=== PATIENT | female | born 1975 | race Hispanic/Latino ===

== ENCOUNTER → 2017-09-17 | Day surgery (SDC) | payer BC ==
[~2017-09-17] MED LIST: CEFAZOLIN SOD 1 GM/NS 50ML 0 ML IV ONE; DEXAMETHASONE SOD PHOS INJ 4 MG/ML VIAL ONE; FENTANYL CITRATE/PF 100MCG/2 ML INJ ONE; LIDOCAINE HCL 2% LOCAL INJ 5 ML SDV VIAL INJ ONE; MIDAZOLAM HCL 2 MG/2 ML VIAL ONE; ONDANSETRON HCL INJ 2 MG/ML VIAL ONE; PROPOFOL IV EMULSION 10 MG/ML 20 ML VIAL ONE; SEVOFLURANE INHAL SOLN 250 ML PEN BTL ONE
--- NOTE | 2017-09-17 16:09 | Operative Report ---
DATE OF PROCEDURE: September 17, 2017 DIRECTOR NICU: Jean Paul Burden PA-C The patient was brought to the operating room for induction of anesthesia. Throughout this case, my PA's assistance was necessary for retraction of soft tissue and positioning of the extremity. This allows for efficient and technically successful execution of the operation and is considered medically necessary. PREOPERATIVE DIAGNOSIS: Right 3rd trigger finger. POSTOPERATIVE DIAGNOSIS: Right 3rd trigger finger. PROCEDURE: Release, right 3rd trigger finger. INDICATIONS: The patient is a 41-year-old lady who has clinic signs and symptoms consistent with right 3rd trigger finger. She has failed conservative management and would like to proceed with a surgical release. The risks and benefits have been explained. She states she understands and wishes to proceed. DESCRIPTION OF PROCEDURE: The patient was brought to the operating room and placed under general anesthetic. Her right upper extremity was prepped and draped in a sterile manner. A preoperative time out was performed. Extremity was exsanguinated, and a proximal tourniquet was inflated to 250 mmHg. An incision in line with the distal palmar crease of the right 3rd finger was made. The A1 nelia was carefully exposed. Care was taken to avoid injury to the neurovascular bundle. A #15 blade surgical knife was used to release the nelia. This was completed with a pair of tenotomy scissors. The tendon was retracted from the wound and noted to have no further stenosing tenosynovitis. The wound was closed with 2 interrupted nylon stitches. A sterile bandage was applied. She was extubated and transported to the recovery room in stable condition. Job#: [id number]
== END | disposition home or self-care (01) ==
LOC: OR 05:20 → EDSTATUS 07:00
PROVIDERS: ATTEND Specialist
DX: M65.331 Trigger finger, right middle finger (principal)
CPT/HCPCS: 26055; J1100; J2001; J2250; J2405

== ENCOUNTER → 2023-03-10 | Day surgery (SDC) | payer BC ==
[~2023-03-10] MED LIST changes: -CEFAZOLIN SOD 1 GM/NS 50ML 0 ML IV ONE; -DEXAMETHASONE SOD PHOS INJ 4 MG/ML VIAL ONE; -FENTANYL CITRATE/PF 100MCG/2 ML INJ ONE; +LACTATED RINGER'S 1,000 ML ONE; -ONDANSETRON HCL INJ 2 MG/ML VIAL ONE; +PEPCID20 MG PO; +POVIDONE IODINE 0.05% 0.05 % ML PO ONE; +PROBIOTIC PO; -SEVOFLURANE INHAL SOLN 250 ML PEN BTL ONE; +TYLENOL EXTRA500 MG PO; +XANAX0.25 MG PO; +[UNRECOGNIZED DRUG - OTHER] PO
[2023-03-10 15:45] VITALS: BP 106/68; PULSE 81; RESP 16; O2SAT 100
== END | disposition home or self-care (01) ==
LOC: OR 13:02
PROVIDERS: ATTEND Internal Medicine Gastroenterology
DX: Z12.11 Encounter for screening for malignant neoplasm of colon (principal); D12.2 Benign neoplasm of ascending colon; D12.3 Benign neoplasm of transverse colon; D12.4 Benign neoplasm of descending colon; K29.60 Other gastritis without bleeding; K29.50 Unspecified chronic gastritis without bleeding; K21.9 Gastro-esophageal reflux disease without esophagitis; K44.9 Diaphragmatic hernia without obstruction or gangrene; K59.00 Constipation, unspecified; K64.8 Other hemorrhoids; F41.9 Anxiety disorder, unspecified; Z79.1 Long term (current) use of non-steroidal anti-inflammatories (NSAID); Z79.899 Other long term (current) drug therapy; Z87.891 Personal history of nicotine dependence
CPT/HCPCS: 43239; 45380; 45384; 81025; J2001; J2250; J2704; J7121; 45378